=== PATIENT | female | born 1970 | race Caucasian/White ===

== ENCOUNTER 2023-11-27 06:16 | Day surgery (SDC) | payer BC, OTHER ==
[2023-11-27] MEDS: Sodium Chloride 0.9% 1,000 ML IV SCH (07:02)
[2023-11-27] MEDS ORDERED: Midazolam 1 MG/ML 2 ML SDV ONE (07:18)
[2023-11-27] MEDS ORDERED: Propofol 200 MG/20 ML SDV ONE ×2 (07:18→07:38)
[2023-11-27] MEDS ORDERED: fentaNYL 50 MCG/ML SDV ONE (07:18)
== END 2023-11-27 09:10 | disposition home or self-care (01) ==
LOC: JP.SDS 06:16
PROVIDERS: ATTEND Surgery
DX: Z12.11 Encounter for screening for malignant neoplasm of colon (principal); K29.80 Duodenitis without bleeding; K57.30 Diverticulosis of large intestine without perforation or abscess without bleeding; K29.50 Unspecified chronic gastritis without bleeding; K63.5 Polyp of colon; F41.9 Anxiety disorder, unspecified; E66.9 Obesity, unspecified; Z86.010 Personal history of colon polyps
CPT/HCPCS: 00813; 43239; G0105; J2250; J2704; J3010; J7030; 88305

== ENCOUNTER 2024-11-18 13:50 | Emergency (ER) | payer OTHER ==
[2024-11-18 16:06] LABS: BASOPHILS ABSOLUTE AUTO 0.05 K/uL (0.00-0.10); BASOPHILS PERCENT AUTO 0.5 % (0.1-1.3); EOSINOPHILS ABSOLUTE AUTO 0.16 K/uL (0.00-0.40); EOSINOPHILS PERCENT AUTO 1.7 % (0.0-5.4); HEMATOCRIT 39.8 % (34.3-46.0); IMMATURE GRAN ABSOLUTE AUTO 0.03 K/uL (0.00-0.23); IMMATURE GRAN PERCENT AUTO 0.3 % (0.0-0.7); LYMPHOCYTES ABSOLUTE AUTO 2.55 K/uL (0.8-3.3); LYMPHOCYTES PERCENT AUTO 27.4 % (11.4-47.7); MEAN CORPUSCULAR HEMOGLOBIN 30.2 pg (31.6-35.5); MEAN CORPUSCULAR HGB CONC 32.7 g/dL (31.6-35.5); MEAN CORPUSCULAR VOLUME 92.6 fL (81.4-99.0); MONOCYTES ABSOLUTE AUTO 0.98 K/uL (0.20-0.90); MONOCYTES PERCENT AUTO 10.5 % (3.3-12.6); NEUTROPHILS ABSOLUTE AUTO 5.53 K/uL (1.0-7.6); NEUTROPHILS PERCENT AUTO 59.6 % (40.0-78.1); PLATELET COUNT,PLT 233 K/uL (130-375); WHITE BLOOD CELL COUNT,WBC 9.3 K/uL (3.2-11.0)
[2024-11-18 16:29] LABS: ANION GAP 6.1 mmol/L (5.0-14.0); C-REACTIVE PROTEIN 0.72 mg/dL (<0.50); CALCIUM 9.5 mg/dL (8.5-10.1); CREATININE 0.9 mg/dL (0.6-1.0); EST CRCL DRUG DOSING (CG) 51.92 mL/min; POTASSIUM,K 4.6 mmol/L (3.6-5.2); TROPONIN I HIGH SENSITIVITY 19.7 pg/mL (<=60.3)
[2024-11-18] MEDS: Albuterol/Ipratropium 3.0-0.5 MG/3 ML Neb Soln NEB ONE (17:13)
== END 2024-11-18 17:35 | disposition home or self-care (01) ==
LOC: JP.ED 13:50
DX: J40 Bronchitis, not specified as acute or chronic (principal); I10 Essential (primary) hypertension; K21.9 Gastro-esophageal reflux disease without esophagitis; Z86.16 Personal history of COVID-19; Z90.49 Acquired absence of other specified parts of digestive tract; Z79.899 Other long term (current) drug therapy; Z88.0 Allergy status to penicillin; Z91.048 Other nonmedicinal substance allergy status; Z88.8 Allergy status to other drugs, medicaments and biological substances
CPT/HCPCS: 36415; 71046; 80048; 84484; 85025; 86140; 93005; 94640; 99285; J7620; 93010; 99283; A9270-GY